=== PATIENT | female | born 2000 | race Caucasian/White ===

== ENCOUNTER 2021-01-23 11:28 | Observation (INO) ==
[2021-01-23] MEDS ORDERED: PANTOPRAZOLE 40 MG VIAL IV STA (12:29)
[2021-01-23 12:42] LABS: Basophils # 0.1 10*3/uL (0.0-0.2); Basophils % 0.9 % (0.0-0.8); Eosinophils % 0.4 % (0.00-10.9); Hematocrit 38.5 VOL% (35.7-47.0); Hemoglobin 12.1 GM/DL (12.0-16.0); Immature Granulocytes % 0.4 %; Immature Granulocytes Absolute 0.02 #; Lymphocytes # 1.4 10*3/uL (1.4-4.0); Lymphocytes % 25.8 % (21.3-54.2); Mean Corpuscular HGB Conc 31.4 GM/DL (32-36); Mean Corpuscular Volume 89.5 FL (87-102); Mean Platelet Volume 12.1 FL (9.6-12.0); Monocytes % 8.2 % (1.7-12.7); Neutrophils % 64.3 % (38.7-73.9); Platelet Count 179 T/CUMM (130-400); Red Cell Distribution Width 14.5 % (9.3-17.3); White Blood Count 5.6 T/CUMM (4-12)
[2021-01-23 12:58] LABS: Bilirubin,Urine Negative (Negative); Blood, Urine Negative (Negative); Glucose,Urine (UA) Negative (Negative); Ketones,Urine Negative (Negative); Nitrite,Urine Negative (Negative); Protein,Urine Negative; RBC,Urine 1 /HPF (0-4); Urine Appearance CLEAR (Clear); Urine Color Colorless (Yellow); Urine Specific Gravity 1.002 (1.001-1.035); Urine Urobilinogen < 2.0 EU/DL (0.2-1.0)
[2021-01-23 12:59] LABS: Albumin 4.3 G/DL (3.4-5.0); Bilirubin,Total 0.4 MG/DL (0.2-1.0); Calcium 9.2 MG/DL (8.5-10.1); Osmolality,Calculated 278.3 MOS/KG (273-304); Potassium 3.6 MMOL/L (3.5-5.1); Total Protein 7.2 G/DL (6.4-8.2)
[2021-01-23] MEDS ORDERED: ACETAMINOPHEN 325 MG TABLET PO PRN (13:46)
[2021-01-23] MEDS ORDERED: ONDANSETRON 4 MG/2 ML VIAL IV PRN (13:46)
[2021-01-23] MEDS ORDERED: DEXTROSE 50% 25 GM/50 ML VIAL IV PRN (13:46)
[2021-01-23] MEDS ORDERED: GLUCAGON 1 MG VIAL IM PRN (13:46)
[2021-01-23] MEDS: PANTOPRAZOLE 40 MG VIAL IV SCH (20:51)
[2021-01-24 04:53] LABS: Basophils # 0.1 10*3/uL (0.0-0.2); Eosinophils # 0.1 10*3/uL (0.0-0.87); Eosinophils % 1.7 % (0.00-10.9); Hematocrit 36.5 VOL% (35.7-47.0); Hemoglobin 11.4 GM/DL (12.0-16.0); Lymphocytes # 2.5 10*3/uL (1.4-4.0); Lymphocytes % 43.2 % (21.3-54.2); Mean Corpuscular HGB Conc 31.2 GM/DL (32-36); Mean Corpuscular Volume 89.5 FL (87-102); Neutrophils % 46.1 % (38.7-73.9); Platelet Count 195 T/CUMM (130-400); Red Blood Count 4.08 MC/CUMM (3.8-5.5); Red Cell Distribution Width 14.6 % (9.3-17.3); White Blood Count 5.7 T/CUMM (4-12)
[2021-01-24 05:12] LABS: Albumin 3.9 G/DL (3.4-5.0); Bilirubin,Total 0.4 MG/DL (0.2-1.0); Osmolality,Calculated 276.3 MOS/KG (273-304); Potassium 3.8 MMOL/L (3.5-5.1); Thyroid Stimulating Hormone 3.12 uIU/ml (0.358-3.74); Total Protein 6.6 G/DL (6.4-8.2)
[2021-01-24 05:47] LABS: INR 1.1; PT Patient Result 11.9 SECS (10.5-12.0)
[2021-01-24 07:50] LABS: % Iron Saturation 9.8 % (18-50); Ferritin 4.5 ng/ml (8-252)
[2021-01-24 07:51] LABS: Folate 7.12 NG/ML (5.38-24.0)
[2021-01-24] MEDS: PANTOPRAZOLE 40 MG VIAL IV SCH (08:58)
[2021-01-24] MEDS ORDERED: FERRIC GLUCONATE COMPLEX 125 MG in SODIUM CHLORIDE 0.9% 100 ML IV SCH (09:00)
[2021-01-24 11:40] LABS: Hematocrit 38.3 VOL% (35.7-47.0)
[2021-01-24 12:07] VITALS: BP 105/66
== END 2021-01-24 13:58 | disposition home or self-care (01) ==
LOC: N.EDINP 11:28 → N.ED 11:28 → N.EDINP 15:30 → N.4E 15:38
PROVIDERS: ADMIT Internal Medicine; ATTEND Internal Medicine